=== PATIENT | male | born 1945 | race Caucasian/White ===

== ENCOUNTER 2017-08-05 18:42 | Inpatient (IN) | payer OTHER, SELFPAY ==
[~2017-08-05] VITALS: Ht 165.1 cm; Wt 61.7 kg
[~2017-08-05 18:42] MED LIST: ACETAMINOPHEN-1 EAC1 PO; ADULT LOW DOSE81 MG PO; ASPIR 8181 MG PO; ASPIR-TRIN325 MG PO; CENTANY30 GM TP; CLEOCIN HCL150 MG PO; CLEOCIN HCL300 MG PO; COUMADIN 5 MG TA5 M1 PO; DIGOXIN; DOXYCYCLINE 10100 M1 PO; IBUPROFEN 800800 M1 PO; INDOMETHACIN 5050 MG PO; KEFLEX500 MG PO; LIDOCAINE VISC100 M1 SWISH&SPIT; MEDROLDOSEPACK PO; MOBIC7.5 M1 PO; NAPROSYN500 MG PO; NOHOMEMEDICATIONS; NORCO 5-325 TA1 EACH PO; PREDNISONE 10 M10 MG PO; PREDNISONE 20 M20 MG PO; PROAIR HFA8.5 GM INH; TESSALON PERLE100 MG PO; ULTRAM 50MG TAB50 MG PO; VENTOLIN HFA 1818 GM INH; VICODIN 5-5001 EACH PO; XANAX1 MG PO; ZANAFLEX4 MG PO; ZPAK PO
[2017-08-05 18:58] VITALS: BP 170/91
[2017-08-05 19:58] LABS: CALCIUM 9.4 mg/dL (8.5-10.1); CREATININE 1.4 mg/dL (0.6-1.3); POTASSIUM 4.8 mmol/L (3.5-5.1)
[2017-08-05 20:02] LABS: TOTAL BILIRUBIN 0.4 mg/dL (<0.1-1.0); TOTAL PROTEIN 7.3 g/dL (6.4-8.2)
[2017-08-05 20:04] LABS: APTT 23.5 Seconds (25.0-31.3); INR 1.2; PROTIME 11.3 Seconds (9.20-11.50)
[2017-08-05 20:27] LABS: ABSOLUTE EOSINOPHILS 0.1 thou/uL (0.0-0.7); ABSOLUTE LYMPHOCYTES 1.4 thou/uL (0.8-5.3); ABSOLUTE MONOCYTES 0.5 thou/uL (0.0-1.2); ABSOLUTE NEUTROPHILS 10.9 thou/uL (1.6-8.1); BASOPHILS 0.3 %; EOSINOPHILS 0.6 %; HEMOGLOBIN 16.7 gm/dL (14.0-18.0); LYMPHOCYTES 10.8 %; MCHC 33.4 g/dL (28.0-37.0); MCV 92.8 fL (80.0-100.0); MPV 9.6 fl. (7.2-11.1); NUCLEATED RBCS 0 /100WBC; PLATELET COUNT* 156 thou/uL (150-400); POLYS 84.3 %; RBC 5.39 mil/uL (4.50-6.00); RDW-CV 13.8 % (10.5-14.5)
[2017-08-05 22:39] VITALS: BP 136/74; BP 170/91
[2017-08-05 23:45] VITALS: BP 146/77
--- NOTE | 2017-08-06 07:03 | NUR ---
ASSUMED CARE OF PATIENT AT 2300 THE PATIENT ADMITTED MEDSURG STATUS NOT MONITORED ON TELEPAK O2 MAINTAINED ON RA CONTINUES SX MANAGEMENT RECEIVED PRN FENTANYL DOCUMENTED REPORT GIVEN TO ONCOMING RN
[2017-08-06 07:30] VITALS: BP 132/60
[2017-08-06 07:47] LABS: URINE BILIRUBIN NEGATIVE (Negative); URINE BLOOD NEGATIVE (Negative); URINE CLARITY CLEAR; URINE COLOR YELLOW; URINE GLUCOSE-RANDOM NEGATIVE (Negative); URINE KETONES NEGATIVE (Negative); URINE LEUKOCYTES-REFLEX NEGATIVE (Negative); URINE NITRITE-REFLEX NEGATIVE (Negative); URINE PROTEIN NEGATIVE (Negative); URINE SPECIFIC GRAVITY 1.025 (1.005-1.030); URINE UROBILINOGEN 0.2 E.U./dl (0.2-1.0)
--- NOTE | 2017-08-06 09:16 | NUR ---
ASSESSMENT COMPLETED REFER TO COMPUTER CHARTING. PATIENT RESTING IN BED REPORTING RIGHT LEG PAIN, IV PAIN MEDICATIONS GIVEN. PATIENT ON ROOM AIR. IV FLUIDS INFUSING. CALL LIGHT WITIN REACH. BED IN LOW AND LOCKED POSITION. PATIENT DOWN TO PRE OP AT 0900.
[2017-08-06 10:01] VITALS: BP 123/75; BP 132/60
--- NOTE | 2017-08-06 11:22 | EKG ---
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: MATTHEW : 1945 Requested By: Celeste Gómez Order Number: [id number] MD: You Morton Measurements Intervals [place] Rate: 74 P: 71 [place]: 150 QRS: 70 QRSD: 90 T: 66 QT: 383 QTc: 425 Interpretive Statements Sinus rhythm Baseline wander in lead(s) I,aVL,V2 Compared to ECG 08/06/2014 20:12:32 Sinus bradycardia no longer present Electronically Signed On 08-06-2017 11:21:42 TRANSIT PLANNER by You Morton [email or web address] <ELECTRONICALLY SIGNED> By: You Morton MD, FACC 08/06/17 1121 17 17 You Morton MD, [facility] /EPI
--- NOTE | 2017-08-06 11:23 | NUR ---
CM ASSESSMENT: Spoke with Pt's son and dtr in room. Pt out of the room in surgery. Pt is normally A&O. Resides at home with his dtr and LINETTE. Pt is independent with ADLs. LINETTE stated that Pt was standing at the top of the stairs and lost his footing, which led to his fall and hip fx. LINETTE stated that Pt has half a foot. No DME. No hx of HH or SNF. Dtr discussed possible need for skilled at dc. CM provided family with [employer] [facility] skilled list, and confirmed that [facility] does accept this insurance. PT to eval. CM following for dc needs.
--- NOTE | 2017-08-06 13:03 | NUR ---
PATIENT BACK FROM SURGERY. PATIENT DROWSEY. PAIN MEDS GIVEN NEEDED. IV FLUIDS INFUSING. PATIENT ON ROOM, CAPNO IN PLACE. HEMO VAC TO RIGHT LEG. DRESSING CLEAN, DRY AND INTACT.
[2017-08-06 14:29] LABS: INR 1.1; PROTIME 10.7 Seconds (9.20-11.50)
[2017-08-06 15:30] VITALS: BP 134/68
[2017-08-07 00:51] VITALS: BP 105/57
[2017-08-07 03:52] LABS: HEMATOCRIT 36.5 % (42.0-52.0)
[2017-08-07 03:54] VITALS: BP 101/60
[2017-08-07 04:15] LABS: HEMOGLOBIN 12.4 gm/dL (14.0-18.0)
--- NOTE | 2017-08-07 05:10 | NUR ---
PT TRANSFERED FROM [facility] AT 2215 ASSISSTED TO ROOM ORIENTED TO SURROUNDINGS PT ALERT AND ORIENTED X4 VS AND ASSESSMENT STABLE. SURGICAL DRSG TO R HIP CDI WITH HEMOVAC IN PLACE DRAINING SMALL AMOUNT SANGUINEOUS OUTPUT. PT DENIED ANY COMPLAINT AND SLEPT THROUGH THE NIGHT. INDIO LOCKHART
[2017-08-07 07:50] VITALS: BP 97/62
[2017-08-07 16:00] VITALS: BP 107/57
--- NOTE | 2017-08-07 18:05 | NUR ---
PAIN MANAGED WITH ORDERED PAIN MEDS. PT WITHOUT C/O TODAY. UP WITH SBA USING WALKER. HEMAVAC IN PLACE WITH SANGUINOUS DRAINAGE. SURGICAL DRESSING IN PLACE.
[2017-08-07 20:00] VITALS: BP 114/60
[2017-08-08 00:16] VITALS: BP 104/63
[2017-08-08 04:05] VITALS: BP 102/54
[2017-08-08 04:45] LABS: HEMATOCRIT 35.4 % (42.0-52.0)
[2017-08-08 08:00] VITALS: BP 107/52
--- NOTE | 2017-08-08 08:19 | NUR ---
ASSUMED CARE OF PATIENT AT APPROXIMATELY 1999. UPON FIRST ASSESSMENT, PATIENT HAD C/O PAIN AND REQUESTED ORDERED PRN MEDICATION. PATIENT A/O X 4 AND VSS. PATIENT EXTREMELY SLEEPY DURING SHIFT, ALTHOUGH HE WAS EASILY AROUSED. PATIENT ONLY MADE THE ONE REQUEST TO NURSING OVERNIGHT AND WAS OTHERWISE CONTENT. PATIENT USED THE URINAL DURING NIGHT AND WAS NOT INCONTINENT. URINE OUTPUT WAS WELL WITHIN NORMAL LIMITS. HEMOVAC IN PLACE, PUTTING OUT BRIGHT RED DISCHARGE. NURSING TO FOLLOW-UP NECESSARY. ALL FALL PRECAUTIONS IN PLACE, INCLUDING CALL LIGHT WITHIN REACH. WILL CONTINUE TO MONITOR CLOSELY.
--- NOTE | 2017-08-08 13:15 | S ---
[address] [address] SURGICAL PATH RPT PROCEDURE Name: AVERY WOODY Room: [address] IN M.R.#: [id number] Admission: 08/05/17 Date of : 49 Discharge: Report #: [id number] Path Case #: [id number] PATHOLOGY REPORT COLLECTION DATE: 08/06/2017 RECEIVED DATE: 08/06/2017 SUBMITTING PHYS: Dr. Victor Manuel Burns OTHER PHYS: Dr. Mike Foley SPECIMEN(S) RECEIVED: A.Right femoral head * * * * * * * * * * * * FINAL DIAGNOSIS: Right femoral head: - Benign femoral head including hematopoietic elements, with osteoporosis and evidence of fracture including fresh stromal hemorrhage. (ARUNA:pit; 08/08/2017) PATHOLOGIST: Jovan Andres M.D. REPORT ELECTRONICALLY SIGNED BY: Jovan Andres M.D. DATE/TIME: 08/08/2017 12:58 * * * * * * * * * * * * GROSS PATHOLOGY: Received in formalin labeled "Avery Zamudio Sr., right femoral head," is a femoral head measuring 4.5 x 4.5 x 4.3 cm in greatest dimensions. The articular surface is smooth to granular and pale navarrete to light brown in appearance, with no gross evidence of eburnation. Sectioning reveals a light yellow to hemorrhagic marrow space, with the distal most aspect hemorrhagic in appearance, consistent with a fracture site. Material Planning Analyst tissue from the fracture site is submitted in cassettes A1 and A2, following decalcification. (DAC; 08/07/2017) CLINICAL HISTORY: Right hip fracture INITIAL CPT CODE(S): A; 89004, 63502 [facility] [address] [place] [address] [address] SURGICAL PATH RPT PROCEDURE Name: AVERY WOODY SR Room: [address] IN [facility].#: [id number] Admission: 08/05/17 Date of : 49 Discharge: Report #: [id number] Path Case #: [id number] Technical services performed by [facility] at [address] [place] [address], [place] [address]. [place] [address] PHONE: [phone] DIRECTOR: Biju George M.D. * * * END OF REPORT * * *
--- NOTE | 2017-08-08 16:41 | NUR ---
CM ASSESSMENT: VISITED WITH PT IN ROOM. PT HOSPITALIZED AFTER FALL AND HAD HIP SURGERY. PT STATES HE LIVES WITH HIS DAUGHTER AND PLANS TO RETURN THERE WITH HOME HEALTH. PT ADAMANT HE WILL NOT GO TO SNU. HE PERFORMS HIS OWN ADLS AT HOME AND DRIVES. HE STATES A NURSE FROM [facility] IS SUPPOSED TO COME TO HIS HOUSE. NO PRFERENCE FOR [facility]. WILL CONTINUE TO FOLLOW
--- NOTE | 2017-08-08 17:32 | NUR ---
PATIENT IS ORIENTED TODAY AND VERY DROWSY MOST OF THE DAY. FAMILY SAID THE MEDICATIONS ARE NOT ORDERED CORRECTLY AND REQUESTED THEY BE CHANGED. PATIENT WORKED WITH OT AND PT AFTER SOME ENCOURAGEMENT. VITAL SIGNS STABLE ON ROOM AIR. PAIN THAT IS WELL CONTROLLED WITH ORAL PAIN MEDICATIONS. CALL LIGHT IS IN REACH CALL WILL CONTINUE TO MONITOR.
[2017-08-08 20:00] VITALS: BP 116/56
[2017-08-08 23:46] VITALS: BP 102/57
[2017-08-09 03:13] VITALS: BP 107/52
--- NOTE | 2017-08-09 05:20 | NUR ---
Alert and oriented x 4. Rt hip mepilex dressing dry and intact. He's voiding per urinal. Medicated x 1 at bedtime for pain. VItals stable. He has slept well.
[2017-08-09 08:00] VITALS: BP 91/47
--- NOTE | 2017-08-09 12:00 | NUR ---
SPOKE WITH PT.IN ROOM. HE WAS ALERT AND ORIENTED. STATED HE WAS AGREEABLE TO SNF AND WANTS TO GO TO [facility]. REFERRAL MADE TO [facility]. SHE SAID THEY CAN ACCEPT PT.MEDICALLY,TOMORROW,PENDING INSURANCE AUTHORIZATION. CM INFORMED PT.'S DAUGHTER AND S-I-L OF THIS WHEN THEY VISITED LATER ON IN THE AFTERNOON.
[2017-08-09 16:10] VITALS: BP 112/61
--- NOTE | 2017-08-09 17:13 | NUR ---
ALERT AND ORIENTED X4. UP WITH ASSIST X1 WITH WALKER AND GAIT BELT. IV IS PATENT AND SALINE LOCKED. PAIN IS BEING MANAGED WITH PO PAIN MEDICATION. DENIES NAUSEA. TOLERATING DIET. ATTENDED THERAPY THIS AM. VSS ON ROOM AIR. HOURLY ROUNDS HAVE BEEN MAINTAINED THROUGHOUT SHIFT. CALL LIGHT IS WITHIN REACH. NURSING WILL CONTINUE TO MONITOR.
[2017-08-09 20:00] VITALS: BP 127/61
[2017-08-10 00:06] VITALS: BP 110/57
[2017-08-10 04:03] VITALS: BP 97/65
--- NOTE | 2017-08-10 06:53 | NUR ---
Alert and oriented x 4. Rt hip bulky dressing dry and intact. He had pain meds x 2 and a dose of milk of mag last evening. Vitals are stable. He has slept well.
[2017-08-10 08:30] VITALS: BP 120/57
--- NOTE | 2017-08-10 14:31 | NUR ---
[facility] CALLED AND SAID SHE HAS AUTHORIZATION FROM INSURANCE. [facility] CAN PICK HIM UP AT 1730. FAXED DISCHARGE ORDERS TO [facility]. CHART COPIED TO GO WITH HIM. ANGELO PUENTES WILL CALL REPORT. PT.SLEEPING SOUNDLY. CALLED DAUGHTER ON CELL TO LET HER KNOW.
[2017-08-10 16:13] VITALS: BP 134/68
[2017-08-10 16:23] VITALS: BP 134/68
[2017-08-10 16:31] VITALS: BP 134/68
[2017-08-10] MEDS ORDERED: DUONEB 2.5-0.5 M3 ML INH (16:39)
[2017-08-10] MEDS ORDERED: HYDROCODONE-AP1 EAC6 PO (16:40)
[2017-08-10] MEDS ORDERED: XARELTO10 MG PO (16:43)
--- NOTE | 2017-08-10 18:29 | NUR ---
PATIENT LEFT UNIT AT 1745. ALERT AND ORIENTED X4. UP WITH ASSIST X1 WITH WALKER AND GAIT BELT. IV DC'D. PAIN BEING MANAGED WITH PO PAIN MEDICATION. DENIES NAUSEA. ALL PERSONAL ITEMS LEFT WITH PATIENT. DISCHARGE INSTRUCTIONS AND PRESCRIPTIONS SENT WITH PATIENT TO FACILITY. ATTENDED THERAPY THIS AM. VSS ON ROOM AIR. HOURLY ROUNDS HAVE BEEN MAINTAINED THROUGHOUT SHIFT. LEFT WITH TRANSPORTER VIA WHEELCHAIR VAN. REPORT GIVEN TO JASMEET AT [facility].
--- NOTE | 2017-08-13 11:32 | NUR ---
CALL FROM PT.S SON IN LAW,TEENA. HE SAID HE WANTS TO GET HIS FATHER IN LAW MOVED TO ANOTHER SNF, HE HAS RECEIVED TERRIBLE CARE WHERE HE IS AT. GAVE EXAMPLES. GAVE HIM SEVERAL CHOICES OF FACILITIES HE COULD GO TO. HE CHOSE [facility]. HE HAS SEEN IT WITH HIS WORK. SUJIT CALLED MICHELLE/[facility] AND FAXED HER H&P AND OP REPORT FROM WHEN HE WAS HERE. MICHELLE SAID THAT THE REST OF THE INFORMATION WILL NEED TO COME FROM [facility]. NOTIFIED TEENA OF FAX NUMBER AND MICHELLE'S PHONE NUMBER. HE WILL NEED CONTACT TELEPHOTO ENGINEER AT [facility] TO REQEST INFORMATION BE FAXED TO Ashley. SUJIT ALSO SPOKE WITH [facility] REGARDING COMPLAINTS. SHE WILL REACH OUT TO THE FAMILY.
--- NOTE | 2017-08-17 09:54 | OP ---
[facility] [address] [place] [address] OPERATIVE REPORT Name: DENISSE WOODY SR Room: [address] IN .R.#: [id number] Admission: 08/05/17 Attend Phys: Lyudmila Painter Discharge: 08/10/17 Date of : 49 Report #: [id number] THIS REPORT FOR: //name// CC: Gianni Schreiber PREOPERATIVE DIAGNOSIS: Displaced subcapital fracture of the right hip. POSTOPERATIVE DIAGNOSIS: Displaced subcapital fracture of the right hip. OPERATIVE PROCEDURES PERFORMED: Right bipolar hip replacement. DESCRIPTION OF PROCEDURE: Under general endotracheal anesthesia, the patient was moved down to the operating room table onto his left side. Routine prep and drape were performed of the right hip and leg. Following the appropriate timeout procedure, an 8-inch mini posterolateral incision was made. The incision was carried through the skin and subcutaneous tissue and fascia dc. The gluteal muscles were split in the direction of their fibers. Short external rotators were incised at the insertion on the greater trochanter. Capsule was opened with a T-shaped incision. Osteotomy was made over the femoral neck in a manner to receive the prosthesis. The femoral head was removed with a femoral head extractor. Femoral head measured 46 mm in diameter. The proximal femur was reamed up to size 8 stem. The bipolar prosthetic device was assembled. The wound was copiously irrigated every 20 minutes with bacitracin solution. Bleeding was carefully controlled throughout the procedure by electrocautery. The hip was reduced and carried through a range of motion without difficulty. A Hemovac drain was inserted. Wound was closed in layers with #2 FiberWire at the capsular fascial layers. Subcutaneous tissue was closed with 2-0 plain. Skin was closed with skin caroline. Sterile dressing was applied. The patient tolerated the procedure well and was returned to the recovery area in good condition. <ELECTRONICALLY SIGNED> By: Victor Manuel Burns MD 08/17/17 0954 1133 1151John Dallin Burns MD /emiliano
--- NOTE | 2017-09-18 14:32 | CON ---
[address] [address] CONSULTATION Name: TREEMILYDENISSE ZAC SR Room: [address] IN .R.#: [id number] Admission: 08/05/17 Attend Phys: Lyudmila Painter Discharge: 08/10/17 Date of : 49 Report #: [id number] THIS REPORT FOR: //name// CC: Gianni Schreiber DATE OF SERVICE: 08/05/2017 HISTORY OF PRESENT ILLNESS: A 71-year-old male fell on to his hip sustaining a displaced subcapital fracture of his right hip. He was seen in the emergency room and was advised that he would require a right bipolar hip replacement arthroplasty. The risks and benefits of surgery along with possible complications were discussed with him. He was noted to be markedly tender the right hip, he complained of pain upon any motion manipulation. The right leg was shortened and externally rotated. Once he is medically cleared, he will be taken to surgery. He will subsequently be followed until his injury has healed. DIAGNOSIS: Displaced subcapital fracture of the right hip. <ELECTRONICALLY SIGNED> By: Victor Manuel Burns MD 09/18/17 1432 0946 1416Josen Burns MD /nt
== END 2017-08-10 17:45 | DRG 470 ==
LOC: M.ERS 18:42 → M.2W 21:26 → M.TBA-ER 21:26 → M.2W 22:43 → M.ORTHSURG 08-06 22:15
PROVIDERS: Nurse Practitioner Family; ADMIT Internal Medicine
PROC: 0SRR0JZ Replacement of Right Hip Joint, Femoral Surface with Synthetic Substitute, Open Approach (ICD-10-PCS; principal; 2017-08-06)
DX: S72.011A Unspecified intracapsular fracture of right femur, initial encounter for closed fracture (principal); F17.210 Nicotine dependence, cigarettes, uncomplicated; R53.81 Other malaise; I25.10 Atherosclerotic heart disease of native coronary artery without angina pectoris; N18.2 Chronic kidney disease, stage 2 (mild); E86.9 Volume depletion, unspecified; F32.9 Major depressive disorder, single episode, unspecified; Z98.49 Cataract extraction status, unspecified eye; I25.2 Old myocardial infarction; Z79.899 Other long term (current) drug therapy; Z88.0 Allergy status to penicillin; Z88.2 Allergy status to sulfonamides; Z79.82 Long term (current) use of aspirin

== ENCOUNTER 2018-02-14 17:47 | Emergency (ER) | payer OTHER, MEDICARE, SELFPAY ==
[~2018-02-14] VITALS: Ht 165.1 cm; Wt 59.0 kg
[~2018-02-14 17:47] MED LIST changes: +DUONEB 2.5-0.5 M3 ML INH; +HYDROCODONE-AP1 EAC6 PO; +XARELTO10 MG PO
[2018-02-14] MEDS ORDERED: MUPIROCIN1 GM TOP (18:01)
[2018-02-14 18:23] LABS: ABSOLUTE EOSINOPHILS 0.1 thou/uL (0.0-0.7); ABSOLUTE LYMPHOCYTES 1.8 thou/uL (0.8-5.3); ABSOLUTE MONOCYTES 0.6 thou/uL (0.0-1.2); ABSOLUTE NEUTROPHILS 4.7 thou/uL (1.6-8.1); BASOPHILS 0.3 %; EOSINOPHILS 1.5 %; HEMATOCRIT 45.6 % (42.0-52.0); HEMOGLOBIN 15.2 gm/dL (14.0-18.0); LYMPHOCYTES 24.5 %; MCH 30.6 pg (26.0-34.0); MCHC 33.3 g/dL (28.0-37.0); MCV 92.1 fL (80.0-100.0); MONOCYTES 8.2 %; MPV 9.2 fl. (7.2-11.1); NUCLEATED RBCS 0 /100WBC; PLATELET COUNT* 174 thou/uL (150-400); POLYS 65.5 %; RBC 4.95 mil/uL (4.50-6.00); RDW-CV 14.4 % (10.5-14.5); WBC 7.2 thou/uL (4.0-11.0)
[2018-02-14 18:29] LABS: CALCIUM 9.1 mg/dL (8.5-10.1); CREATININE 1.4 mg/dL (0.6-1.3); POTASSIUM 4.7 mmol/L (3.5-5.1)
[2018-02-14 18:34] LABS: TOTAL BILIRUBIN 0.4 mg/dL (<0.1-1.0); TOTAL PROTEIN 7.3 g/dL (6.4-8.2)
[2018-02-14] MEDS ORDERED: CLEOCIN HCL150 MG PO (18:58)
[2018-02-14] MEDS ORDERED: ANTIFUNGAL30 GM TOP (18:58)
[2018-02-14 20:20] VITALS: BP 152/82
== END 2018-02-14 20:27 | disposition home or self-care (01) ==
LOC: M.ERS 17:47
PROVIDERS: Nurse Practitioner Family
DX: L03.115 Cellulitis of right lower limb (principal); I25.10 Atherosclerotic heart disease of native coronary artery without angina pectoris; I25.2 Old myocardial infarction; F32.9 Major depressive disorder, single episode, unspecified; F17.210 Nicotine dependence, cigarettes, uncomplicated; Z88.0 Allergy status to penicillin; Z88.1 Allergy status to other antibiotic agents

== ENCOUNTER 2018-04-06 22:46 | Emergency (ER) | payer OTHER ==
[~2018-04-06] VITALS: Ht 165.1 cm; Wt 59.0 kg
[~2018-04-06 22:46] MED LIST changes: +ANTIFUNGAL30 GM TOP; +MUPIROCIN1 GM TOP
[2018-04-06] MEDS ORDERED: BLOOD THINNER (23:05)
[2018-04-06] MEDS ORDERED: XANAX (23:05)
[2018-04-07 00:09] VITALS: BP 130/70
== END 2018-04-07 00:10 | disposition home or self-care (01) ==
LOC: M.ERS 22:46
DX: S01.81XA Laceration without foreign body of other part of head, initial encounter (principal); F32.9 Major depressive disorder, single episode, unspecified; I25.10 Atherosclerotic heart disease of native coronary artery without angina pectoris; F17.210 Nicotine dependence, cigarettes, uncomplicated; Z96.641 Presence of right artificial hip joint; Z87.442 Personal history of urinary calculi; Z88.1 Allergy status to other antibiotic agents; Z88.0 Allergy status to penicillin; W10.8XXA Fall (on) (from) other stairs and steps, initial encounter; Y93.89 Activity, other specified; Y92.89 Other specified places as the place of occurrence of the external cause; Y99.8 Other external cause status

== ENCOUNTER 2018-06-17 13:15 | Emergency (ER) | payer OTHER ==
[~2018-06-17] VITALS: Ht 165.1 cm; Wt 59.0 kg
[~2018-06-17 13:15] MED LIST changes: +BLOOD THINNER; +XANAX
[2018-06-17 13:25] VITALS: BP 143/93
[2018-06-17] MEDS ORDERED: KEFLEX500 M1 PO (14:05)
== END 2018-06-17 14:09 | disposition home or self-care (01) ==
LOC: M.ERS 13:15
DX: L03.115 Cellulitis of right lower limb (principal); F32.9 Major depressive disorder, single episode, unspecified; F17.210 Nicotine dependence, cigarettes, uncomplicated; Z88.0 Allergy status to penicillin; Z88.2 Allergy status to sulfonamides; Z89.432 Acquired absence of left foot; Z87.442 Personal history of urinary calculi; Z96.641 Presence of right artificial hip joint

== ENCOUNTER 2018-08-07 20:01 | Emergency (ER) | payer OTHER ==
[~2018-08-07] VITALS: Ht 165.1 cm; Wt 59.0 kg
[~2018-08-07 20:01] MED LIST changes: +KEFLEX500 M1 PO
[2018-08-07] MEDS ORDERED: ASPIR 8181 MG PO (20:20)
[2018-08-07] MEDS ORDERED: TRAZODONE HCL50 MG PO (20:21)
[2018-08-07] MEDS ORDERED: XARELTO20 MG PO (20:21)
[2018-08-07 20:37] LABS: ABSOLUTE EOSINOPHILS 0.1 thou/uL (0.0-0.7); ABSOLUTE LYMPHOCYTES 1.9 thou/uL (0.8-5.3); ABSOLUTE MONOCYTES 0.6 thou/uL (0.0-1.2); ABSOLUTE NEUTROPHILS 4.6 thou/uL (1.6-8.1); BASOPHILS 0.6 %; EOSINOPHILS 1.5 %; HEMATOCRIT 44.6 % (42.0-52.0); HEMOGLOBIN 15.2 gm/dL (14.0-18.0); LYMPHOCYTES 25.9 %; MCH 31.4 pg (26.0-34.0); MCHC 34.1 g/dL (28.0-37.0); MCV 92.1 fL (80.0-100.0); MONOCYTES 8.3 %; MPV 9.3 fl. (7.2-11.1); NUCLEATED RBCS 0 /100WBC; PLATELET COUNT* 196 thou/uL (150-400); POLYS 63.7 %; RBC 4.84 mil/uL (4.50-6.00); RDW-CV 14.2 % (10.5-14.5); WBC 7.3 thou/uL (4.0-11.0)
[2018-08-07 20:45] LABS: ANION GAP 5 mmol/L (7-16); BUN 22 mg/dL (7-18); CALCIUM 8.9 mg/dL (8.5-10.1); CHLORIDE 106 mmol/L (98-107); CO2 33 mmol/L (21-32); CREATININE 1.6 mg/dL (0.6-1.3); GLUCOSE 132 mg/dL (70-99); POTASSIUM 4.5 mmol/L (3.5-5.1); SODIUM 144 mmol/L (136-145)
[2018-08-07 20:53] LABS: ALBUMIN 3.4 g/dL (3.4-5.0); ALKALINE PHOSPHATASE 71 U/L (46-116); LIPASE 126 U/L (73-393); SGOT 22 U/L (15-37); SGPT 43 U/L (30-65); TOTAL BILIRUBIN 0.3 mg/dL (<0.1-1.0); TOTAL PROTEIN 6.2 g/dL (6.4-8.2); TROPONIN-I LEVEL <0.06 ng/mL (<0.06)
[2018-08-07 21:00] LABS: URINE BILIRUBIN NEGATIVE (Negative); URINE BLOOD NEGATIVE (Negative); URINE CLARITY CLEAR; URINE COLOR YELLOW; URINE GLUCOSE-RANDOM NEGATIVE (Negative); URINE KETONES NEGATIVE (Negative); URINE LEUKOCYTES-REFLEX NEGATIVE (Negative); URINE NITRITE-REFLEX NEGATIVE (Negative); URINE PROTEIN NEGATIVE (Negative); URINE SPECIFIC GRAVITY >= 1.030 (1.005-1.030); URINE UROBILINOGEN 0.2 E.U./dl (0.2-1.0)
[2018-08-07 22:21] VITALS: BP 107/53
--- NOTE | 2018-08-08 16:35 | EKG ---
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
== END 2018-08-07 22:22 | disposition home or self-care (01) ==
LOC: M.ERS 20:01
PROVIDERS: Family Medicine
DX: R10.30 Lower abdominal pain, unspecified (principal); M25.551 Pain in right hip; I25.10 Atherosclerotic heart disease of native coronary artery without angina pectoris; F32.9 Major depressive disorder, single episode, unspecified; F17.210 Nicotine dependence, cigarettes, uncomplicated; Z87.442 Personal history of urinary calculi; Z96.641 Presence of right artificial hip joint

== ENCOUNTER 2018-09-28 17:11 | Emergency (ER) | payer OTHER ==
[~2018-09-28] VITALS: Ht 165.1 cm; Wt 59.0 kg
[~2018-09-28 17:11] MED LIST changes: +TRAZODONE HCL50 MG PO; +XARELTO20 MG PO
[2018-09-28] MEDS ORDERED: COUMADIN 5 MG TA5 M1 PO (17:22)
[2018-09-28 19:06] VITALS: BP 128/77
== END 2018-09-28 19:06 | disposition home or self-care (01) ==
LOC: M.ERS 17:11
DX: S70.01XA Contusion of right hip, initial encounter (principal); S70.11XA Contusion of right thigh, initial encounter; S00.81XA Abrasion of other part of head, initial encounter; I25.10 Atherosclerotic heart disease of native coronary artery without angina pectoris; F32.9 Major depressive disorder, single episode, unspecified; F17.210 Nicotine dependence, cigarettes, uncomplicated; Z88.2 Allergy status to sulfonamides; Z89.432 Acquired absence of left foot; Z87.442 Personal history of urinary calculi; Z96.641 Presence of right artificial hip joint; W06.XXXA Fall from bed, initial encounter; Y93.89 Activity, other specified; Y92.89 Other specified places as the place of occurrence of the external cause; Y99.8 Other external cause status

== ENCOUNTER 2019-02-17 11:02 | Emergency (ER) | payer OTHER | END 2019-02-17 13:00 | disposition home or self-care (01) | LOC: M.ERS 11:02 | DX: S20.212A Contusion of left front wall of thorax, initial encounter (principal); F17.210 Nicotine dependence, cigarettes, uncomplicated; I25.10 Atherosclerotic heart disease of native coronary artery without angina pectoris; I25.2 Old myocardial infarction; Z79.82 Long term (current) use of aspirin; Z88.0 Allergy status to penicillin; Z88.2 Allergy status to sulfonamides; W06.XXXA Fall from bed, initial encounter; Y93.89 Activity, other specified; Y92.89 Other specified places as the place of occurrence of the external cause; Y99.8 Other external cause status ==

== ENCOUNTER 2019-03-08 14:11 | Emergency (ER) | payer OTHER ==
[~2019-03-08] VITALS: Ht 165.1 cm; Wt 59.0 kg
[~2019-03-08 14:11] MED LIST changes: +NABUMETONE 750750 M1 PO
[2019-03-08] MEDS ORDERED: COUMADIN 4 MG TA4 M1 PO (14:25)
[2019-03-08] MEDS ORDERED: NABUMETONE 750750 M1 PO (14:25)
[2019-03-08] MEDS ORDERED: PROTONIX 20 MG20 M1 PO (14:25)
[2019-03-08] MEDS ORDERED: CARTIA XT120 M1 PO (14:25)
[2019-03-08] MEDS ORDERED: NORCO 5-325 TA1 EAC1 PO (15:55)
[2019-03-08] MEDS ORDERED: MEDROLDOSEPACK PO (15:59)
[2019-03-08 16:00] VITALS: BP 110/84
== END 2019-03-08 16:01 | disposition home or self-care (01) ==
LOC: M.ERS 14:11
DX: S22.42XA Multiple fractures of ribs, left side, initial encounter for closed fracture (principal); I25.10 Atherosclerotic heart disease of native coronary artery without angina pectoris; I25.2 Old myocardial infarction; F32.9 Major depressive disorder, single episode, unspecified; F17.210 Nicotine dependence, cigarettes, uncomplicated; Z96.641 Presence of right artificial hip joint; Z90.49 Acquired absence of other specified parts of digestive tract; Z89.422 Acquired absence of other left toe(s); Z87.442 Personal history of urinary calculi; Z88.0 Allergy status to penicillin; Z88.2 Allergy status to sulfonamides; X58.XXXA Exposure to other specified factors, initial encounter; Y92.89 Other specified places as the place of occurrence of the external cause; Y93.89 Activity, other specified; Y99.8 Other external cause status

== ENCOUNTER 2019-05-26 16:25 | Inpatient (IN) | payer OTHER ==
[~2019-05-26] VITALS: Ht 165.1 cm; Wt 57.6 kg
[~2019-05-26 16:25] MED LIST changes: +CARTIA XT120 M1 PO; +COUMADIN 4 MG TA4 M1 PO; +NORCO 5-325 TA1 EAC1 PO; +PROTONIX 20 MG20 M1 PO
[2019-05-26 16:37] VITALS: BP 142/93
[2019-05-26 17:43] LABS: ABSOLUTE EOSINOPHILS 0.1 thou/uL (0.0-0.7); ABSOLUTE LYMPHOCYTES 1.6 thou/uL (0.8-5.3); ABSOLUTE MONOCYTES 0.6 thou/uL (0.0-1.2); ABSOLUTE NEUTROPHILS 4.9 thou/uL (1.6-8.1); BASOPHILS 0.4 %; EOSINOPHILS 0.9 %; HEMATOCRIT 48.3 % (42.0-52.0); HEMOGLOBIN 16.8 gm/dL (14.0-18.0); LYMPHOCYTES 22.1 %; MCH 31.4 pg (26.0-34.0); MCHC 34.7 g/dL (28.0-37.0); MCV 90.4 fL (80.0-100.0); MONOCYTES 8.7 %; MPV 9.1 fl. (7.2-11.1); NUCLEATED RBCS 0 /100WBC; PLATELET COUNT* 196 thou/uL (150-400); POLYS 67.9 %; RBC 5.34 mil/uL (4.50-6.00); RDW-CV 13.5 % (10.5-14.5); WBC 7.1 thou/uL (4.0-11.0)
[2019-05-26 17:54] LABS: INR 1.1; PROTIME 11.6 Seconds (9.20-11.50)
[2019-05-26 18:06] LABS: CREATININE 1.6 mg/dL (0.6-1.3); POTASSIUM 5.6 mmol/L (3.5-5.1); TOTAL BILIRUBIN 0.9 mg/dL (<0.1-1.0); TOTAL PROTEIN 7.8 g/dL (6.4-8.2)
[2019-05-26 18:22] LABS: CALCIUM 9.9 mg/dL (8.5-10.1)
[2019-05-26 23:26] LABS: INFLUENZA A ANTIGEN Negative (Negative); INFLUENZA B ANTIGEN Negative (Negative)
[2019-05-27 00:01] VITALS: BP 113/72
[2019-05-27 03:16] LABS: HEMATOCRIT 48.3 % (42.0-52.0); HEMOGLOBIN 16.2 gm/dL (14.0-18.0); MCH 30.6 pg (26.0-34.0); MCHC 33.6 g/dL (28.0-37.0); MCV 91.3 fL (80.0-100.0); MPV 9.2 fl. (7.2-11.1); RBC 5.29 mil/uL (4.50-6.00); RDW-CV 13.7 % (10.5-14.5); WBC 8.8 thou/uL (4.0-11.0)
[2019-05-27 03:36] LABS: CALCIUM 9.4 mg/dL (8.5-10.1); CREATININE 1.5 mg/dL (0.6-1.3); MAGNESIUM 2.1 mg/dL (1.8-2.4)
[2019-05-27 03:39] LABS: POTASSIUM 4.3 mmol/L (3.5-5.1)
[2019-05-27 05:13] VITALS: BP 112/76
[2019-05-27 08:00] VITALS: BP 133/60
[2019-05-27 14:20] LABS: ABSOLUTE MONOCYTES 0.5 thou/uL (0.0-1.2); ABSOLUTE NEUTROPHILS 5.4 thou/uL (1.6-8.1); BASOPHILS 0.4 %; EOSINOPHILS 0.4 %; HEMATOCRIT 47.3 % (42.0-52.0); HEMOGLOBIN 16.2 gm/dL (14.0-18.0); LYMPHOCYTES 14.3 %; MCH 31.2 pg (26.0-34.0); MCHC 34.4 g/dL (28.0-37.0); MCV 90.9 fL (80.0-100.0); MONOCYTES 7.1 %; MPV 9.2 fl. (7.2-11.1); NUCLEATED RBCS 0 /100WBC; PLATELET COUNT* 195 thou/uL (150-400); POLYS 77.8 %; RDW-CV 13.7 % (10.5-14.5)
[2019-05-27 14:29] LABS: APTT 27.2 Seconds (25.0-31.3); INR 1.1; PROTIME 11.3 Seconds (9.20-11.50)
--- NOTE | 2019-05-27 14:31 | CON ---
[address] [address] CONSULTATION Name: DENISSE WOODY Room: [place] [address] ADM IN M.Marlen.#: [id number] Admission: 05/26/19 Attend Phys: Joi Gottlieb MD Discharge: Date of : 49 Report #: [id number] THIS REPORT FOR: //name// CC: Gianni Gottlieb DATE OF SERVICE: 05/27/2019 CARDIOLOGY CONSULTATION HISTORY OF PRESENT ILLNESS: The patient is a 73-year-old single white male who I was asked to see in the Emergency Room today after complaining of fever and cough. The patient has a long history of AFib. He apparently has never been cardioverted. He has been followed by my partner, Dr. Victor Manuel Roca. He has been chronically anticoagulated with warfarin. He does have his INR checked on a regular basis. Previous cardiac workup included an echocardiogram back in 2009 that showed normal left ventricular function. He underwent a stress echocardiogram back in 2009 that showed no evidence of ischemia. The patient last saw Dr. Roca in January of this year when he was doing well. The patient states he was doing well until the past 2 days, he has been running a fever and coughing. Denied any shortness of breath, edema, awakened up at night short of breath. He has noticed some fatigue. Denied chest pain or palpitations. He came to the Emergency Room and was admitted. PAST MEDICAL HISTORY: Otherwise, significant for cataract extraction. He had accident [place] the farm requiring amputation of his left toes in the past. He has had hip replacement. He has had kidney stone surgery. He has no history of hypertension, diabetes, or hyperlipidemia. MEDICATIONS: Include diltiazem 120 mg a day, warfarin 4 mg a day, and Relafen. ALLERGIES: He has an allergy to PENICILLIN and SULFA drugs. FAMILY HISTORY: His mother and father had heart disease. SOCIAL HISTORY: He is , lives by himself here in [place]. He is retired at this time. He does smoke a pipe. No history of alcohol abuse. REVIEW OF SYSTEMS: He has no history of stroke, asthma, or peptic ulcer disease. He has had a kidney stone. No cancer. He wears glasses. PHYSICAL EXAMINATION: GENERAL: Revealed an elderly male, lying in bed, appeared in no distress. VITAL SIGNS: He had a blood pressure 130/60, pulse is 80, he is afebrile. HEENT: He was anicteric. Conjunctivae pink. [place] [address] CONSULTATION Name: DENISSE WOODY Room: [address] IN [facility].#: [id number] Admission: 05/26/19 Attend Phys: Joi Gottlieb MD Discharge: Date of : 49 Report #: [id number] NECK: Veins nondistended. No carotid bruits. CHEST: Clear to auscultation. CARDIOVASCULAR: Irregular rhythm. No significant murmurs. ABDOMEN: Soft. EXTREMITIES: He had no edema. Posterior tibial pulse 2+ bilaterally. SKIN: Warm and dry. NEUROLOGIC: Nonfocal. LYMPH: No adenopathy. MUSCULOSKELETAL: No joint effusion. DIAGNOSTIC DATA: ECG shows atrial fibrillation, nonspecific ST and T-wave change. His workup in the Emergency Room today: Sodium 145, creatinine 1.5, glucose was 81. Liver function studies were normal. Troponin 0.06. BNP 653. TSH in 2015 was 1.18. INR was 1.8, white blood cell count 8.8, and hemoglobin 16.2. The patient had a portable chest x-ray in the Emergency Room today that showed normal heart size, no pleural effusion, no infiltrate. IMPRESSION AND RECOMMENDATIONS: 1. Bronchitis. The patient has fever and cough. Recommend antibiotics. 2. Permanent atrial fibrillation. Rate controlled with calcium izzy. I would continue anticoagulation, maintain an INR of 2-3. 3. Hypertension. The patient is on a calcium izzy. 4. Tobacco abuse. The patient uses a pipe. 5. History of kidney stones. <ELECTRONICALLY SIGNED> By: You Morton MD, FACC 05/27/19 1431 1239 1301Davigolden Morton MD, FACC /nt
--- NOTE | 2019-05-27 15:05 | 2DMMODE ---
[place] [address] 2 D/M-MODE ECHOCARDIOGRAM Name: BONGDENISSEANTHONY FRANK Room: [place] [address] ADM IN [facility]#: [id number] Admission: 05/26/19 Attend Phys: Joi Gottlieb, Discharge: Date of : 49 Date of Service: 05/27/19 1504 Report #: [id number] THIS REPORT FOR: //name// APPROVED REPORT Study performed: 05/27/2019 13:38:52 EXAM: Comprehensive 2D, Doppler, and color-flow Echocardiogram Patient Location: In-Patient Room #: er Status: routine BSA: 1.65 HR: 81 bpm BP: 121/70 mmHg Rhythm: Atrial Fibrillation Other Information Study Quality: Good Indications Dyspnea 2D Dimensions IVSd: 10.85 (7-11mm) LVOT Diam: 18.70 (18-24mm) LVDd: 46.23 mm PWd: 7.94 (7-11mm) Ascending Ao: 34.98 (22-36mm) LVDs: 25.57 (25-40mm) Aortic Root: 29.66 mm Volumes Left Atrial Volume (Systole) LA ESV Index: 31.40 mL/m2 Aortic Valve AoV Peak Timur.: 1.40 m/s AO Peak Gr.: 7.83 mmHg LVOT Max P.37 mmHg AO Mean Gr.: 4.40 mmHg LVOT Mean P.20 mmHg LVOT Max V: 1.05 m/s AO V2 VTI: 25.04 cm LVOT Mean V: 0.68 m/s BETTE (VTI): 2.17 cm2 LVOT V1 VTI: 19.76 cm TDI Medial E' Timur.: 0.17 m/s Lateral E' Timur.: 0.14 m/[place] [address] 2 D/M-MODE ECHOCARDIOGRAM Name: DENISSE WOODY Room: [address] IN [facility].#: [id number] Admission: 05/26/19 Attend Phys: Joi Gottlieb, Discharge: Date of : 49 Date of Service: 05/27/19 1504 Report #: [id number] Pulmonary Valve PV Peak Timru.: 1.10 m/s PV Peak Gr.: 4.84 mmHg Tricuspid Valve RAP Estimate: 5.00 mmHg TR Peak Gr.: 27.88 mmHg RVSP: 32.00 mmHg PA Pressure: 32.00 mmHg Left Ventricle The left ventricle is normal size. There is normal LV segmental wall motion. There is normal left ventricular wall thickness. Left ventricular systolic function is normal. The left ventricular ejection fraction is within the normal range. LVEF is 55-60%. This study is not technically sufficient to allow evaluation of the LV diastolic function due to atrial fibrillation. Right Ventricle The right ventricle is normal size. The right ventricular systolic function is normal. Atria Left atrium is mildly dilated. The right atrium size is normal. Aortic Valve The aortic valve is normal in structure. No aortic regurgitation is present. There is no aortic valvular stenosis. Mitral Valve The mitral valve is normal in structure. Trace mitral regurgitation. No evidence of mitral valve stenosis. Tricuspid Valve The tricuspid valve is normal in structure. Mild tricuspid regurgitation. estimated pa pressure 35 mm hg Pulmonic Valve Pulmonic valve is not well visualized. Trace pulmonic regurgitation. Great Vessels The aortic root is normal in size. IVC is normal in size and collapses >50% with inspiration. Pericardium There [place] [address] 2 D/M-MODE ECHOCARDIOGRAM Name: DENISSE WOODY Room: [address] IN [facility]#: [id number] Admission: 05/26/19 Attend Phys: Joi Gottlieb, Discharge: Date of : 49 Date of Service: 05/27/19 1504 Report #: [id number] <Conclusion> LVEF is 55-60%. Left atrium is mildly dilated. <ELECTRONICALLY SIGNED> By: You Morton MD, [facility] 05/27/19 1504 1504 1504 You Morton MD, [facility] /INF
[2019-05-27 16:08] VITALS: BP 133/71
[2019-05-27 16:42] VITALS: BP 139/65
[2019-05-27] MEDS ORDERED: WELLBUTRIN SR150 M1 PO (17:17)
[2019-05-27] MEDS ORDERED: XANAX1 MG PO (17:18)
[2019-05-27] MEDS ORDERED: PROTONIX 20 MG20 MG PO (18:24)
[2019-05-27 20:00] VITALS: BP 115/49
[2019-05-28] VITALS (7 sets, daily range): BP systolic 118–140; BP diastolic 49–72
[2019-05-28 02:24] LABS: AMP/METHAMP Negative (Negative); BARBITURATES Negative (Negative); BENZODIAZEPINES POSITIVE (Negative); COCAINE Negative (Negative); METHADONE Negative (Negative); OPIATES Negative (Negative); PCP Negative (Negative); THC Negative (Negative)
[2019-05-28 05:42] LABS: HEMATOCRIT 40.7 % (42.0-52.0); MCH 30.9 pg (26.0-34.0); MCHC 34.1 g/dL (28.0-37.0); MCV 90.6 fL (80.0-100.0); MPV 9.3 fl. (7.2-11.1); RBC 4.5 mil/uL (4.50-6.00); RDW-CV 13.4 % (10.5-14.5); WBC 6.8 thou/uL (4.0-11.0)
[2019-05-28 05:46] LABS: INR 1.2; PROTIME 11.9 Seconds (9.20-11.50)
[2019-05-28 05:52] LABS: HEMOGLOBIN 13.9 gm/dL (14.0-18.0)
[2019-05-28 06:08] LABS: ALBUMIN 3.7 g/dL (3.4-5.0); ALKALINE PHOSPHATASE 73 U/L (46-116); ANION GAP 9 mmol/L (7-16); BUN 29 mg/dL (7-18); CALCIUM 8.9 mg/dL (8.5-10.1); CHLORIDE 107 mmol/L (98-107); CHOLESTEROL 96 mg/dL (<200); CO2 26 mmol/L (21-32); CREATININE 1.5 mg/dL (0.6-1.3); GLUCOSE 97 mg/dL (70-99); HDL CHOLESTEROL 42 mg/dL (>40); LDL CHOLESTEROL 44 mg/dL (<100); POTASSIUM 3.8 mmol/L (3.5-5.1); SERUM ASSESSMENT Clear; SGOT 19 U/L (15-37); SGPT 28 U/L (30-65); SODIUM 142 mmol/L (136-145); TC:HDL 2.3 Ratio (Not establshd); TOTAL BILIRUBIN 0.4 mg/dL (<0.1-1.0); TOTAL PROTEIN 6.6 g/dL (6.4-8.2); TRIGLYCERIDE 52 mg/dL (<150); VLDL 10 mg/dL (<40)
[2019-05-29] VITALS: BP 142/64
[2019-05-29 04:00] VITALS: BP 139/70
[2019-05-29 05:21] LABS: INR 1.4; PROTIME 14.5 Seconds (9.20-11.50)
[2019-05-29 08:00] VITALS: BP 152/74
[2019-05-29] MEDS ORDERED: FLECAINIDE ACET50 M1 PO (10:43)
[2019-05-29] MEDS ORDERED: NICOTINE TRANSD21 M1 TRANSDERM (11:10)
[2019-05-29] MEDS ORDERED: AZITHROMYCIN 2250 MG PO (11:26)
--- NOTE | 2019-05-29 11:26 | EKG ---
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
[2019-05-29] MEDS ORDERED: AZITHROMYCIN500 MG (11:32)
[2019-05-29 11:37] VITALS: BP 160/61
--- NOTE | 2019-05-30 14:34 | EKG ---
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 : 1945 Requested By: Davie Barron Order Number: [id number] Kassandra MD: Victor Manuel Roca Measurements Intervals [place] Rate: 118 P: [place]: QRS: 77 QRSD: 79 T: -85 QT: 265 QTc: 372 Interpretive Statements Atrial fibrillation Repol abnrm suggests ischemia, inferior leads Compared to ECG 08/07/2018 20:50:18 Early repolarization now present Possible ischemia now present Sinus rhythm no longer present Electronically Signed On 05-30-2019 14:34:04 CDT by Victor Manuel Roca [email or web address] <ELECTRONICALLY SIGNED> By: Victor Manuel Roca MD, FAC 05/30/19 1434 1644 1644 Victor Manuel Roca MD, [facility] /EPI
== END 2019-05-29 11:52 | disposition home health service (06) | DRG 309 ==
LOC: M.ERS 16:25 → M.2W 18:13 → M.TBA-ER 18:13 → M.2W 05-27 16:28
PROVIDERS: Emergency Medicine Emergency Medical Services; Family Medicine; Internal Medicine Cardiovascular Disease; Personal Emergency Response Attendant; ADMIT Internal Medicine
PROC: 5A2204Z Restoration of Cardiac Rhythm, Single (ICD-10-PCS; principal; 2019-05-28)
DX: I48.21 Permanent atrial fibrillation (principal); N17.9 Acute kidney failure, unspecified; I48.20 Chronic atrial fibrillation, unspecified; I12.9 Hypertensive chronic kidney disease with stage 1 through stage 4 chronic kidney disease, or unspecified chronic kidney disease; N18.3 Chronic kidney disease, stage 3 (moderate); I25.10 Atherosclerotic heart disease of native coronary artery without angina pectoris; F32.9 Major depressive disorder, single episode, unspecified; Z96.641 Presence of right artificial hip joint; F03.90 Unspecified dementia, unspecified severity, without behavioral disturbance, psychotic disturbance, mood disturbance, and anxiety; F17.210 Nicotine dependence, cigarettes, uncomplicated; F41.9 Anxiety disorder, unspecified; J44.9 Chronic obstructive pulmonary disease, unspecified; Z79.01 Long term (current) use of anticoagulants; Z89.432 Acquired absence of left foot; Z87.442 Personal history of urinary calculi; I25.2 Old myocardial infarction; Z88.0 Allergy status to penicillin; Z88.2 Allergy status to sulfonamides; Z82.49 Family history of ischemic heart disease and other diseases of the circulatory system; Z86.73 Personal history of transient ischemic attack (TIA), and cerebral infarction without residual deficits; Z91.14 Patient's other noncompliance with medication regimen; Z23 Encounter for immunization; Z79.899 Other long term (current) drug therapy

== ENCOUNTER 2019-06-25 10:26 | Emergency (ER) | payer OTHER ==
[~2019-06-25] VITALS: Ht 165.1 cm; Wt 59.0 kg
[~2019-06-25 10:26] MED LIST changes: +AZITHROMYCIN 2250 MG PO; +AZITHROMYCIN500 MG; +FLECAINIDE ACET50 M1 PO; +NICOTINE TRANSD21 M1 TRANSDERM; +PROTONIX 20 MG20 MG PO; +WELLBUTRIN SR150 M1 PO
[2019-06-25] MEDS ORDERED: TYLENOL WITH CO1 TA1 PO (11:51)
[2019-06-25 12:04] VITALS: BP 138/76
== END 2019-06-25 12:04 | disposition home or self-care (01) ==
LOC: M.ERS 10:26
DX: M25.532 Pain in left wrist (principal); I25.10 Atherosclerotic heart disease of native coronary artery without angina pectoris; I25.2 Old myocardial infarction; F32.9 Major depressive disorder, single episode, unspecified; F17.210 Nicotine dependence, cigarettes, uncomplicated; Z87.442 Personal history of urinary calculi; Z89.432 Acquired absence of left foot; Z88.2 Allergy status to sulfonamides; Z88.0 Allergy status to penicillin

== ENCOUNTER 2019-06-27 11:48 | Emergency (ER) | payer OTHER ==
[~2019-06-27] VITALS: Ht 165.1 cm; Wt 59.0 kg
[~2019-06-27 11:48] MED LIST changes: +TYLENOL WITH CO1 TA1 PO
[2019-06-27 12:57] LABS: ABSOLUTE EOSINOPHILS 0.1 thou/uL (0.0-0.7); ABSOLUTE LYMPHOCYTES 1.6 thou/uL (0.8-5.3); ABSOLUTE MONOCYTES 0.4 thou/uL (0.0-1.2); ABSOLUTE NEUTROPHILS 3.7 thou/uL (1.6-8.1); BASOPHILS 0.5 %; EOSINOPHILS 1.4 %; HEMATOCRIT 45.4 % (42.0-52.0); HEMOGLOBIN 15.3 gm/dL (14.0-18.0); LYMPHOCYTES 27.5 %; MCH 30.7 pg (26.0-34.0); MCHC 33.8 g/dL (28.0-37.0); MCV 91.1 fL (80.0-100.0); MONOCYTES 7.6 %; MPV 8.6 fl. (7.2-11.1); NUCLEATED RBCS 0 /100WBC; PLATELET COUNT* 167 thou/uL (150-400); RBC 4.99 mil/uL (4.50-6.00); RDW-CV 14.3 % (10.5-14.5); WBC 5.9 thou/uL (4.0-11.0)
[2019-06-27 13:04] LABS: CALCIUM 8.4 mg/dL (8.5-10.1); CREATININE 1.3 mg/dL (0.6-1.3); POTASSIUM 4.7 mmol/L (3.5-5.1)
[2019-06-27 13:09] LABS: TOTAL BILIRUBIN 0.7 mg/dL (<0.1-1.0); TOTAL PROTEIN 7.1 g/dL (6.4-8.2)
[2019-06-27] MEDS ORDERED: NORCO 5-325 TA1 EAC1 PO (13:58)
[2019-06-27] MEDS ORDERED: VALACYCLOVIR500 MG PO (13:58)
[2019-06-27 14:16] VITALS: BP 121/75
== END 2019-06-27 14:16 | disposition home or self-care (01) ==
LOC: M.ERS 11:48
PROVIDERS: Physician Assistant
DX: M25.532 Pain in left wrist (principal); M25.542 Pain in joints of left hand; F17.210 Nicotine dependence, cigarettes, uncomplicated; Z88.2 Allergy status to sulfonamides; Z88.0 Allergy status to penicillin

== ENCOUNTER 2021-07-12 09:21 | Emergency (ER) | payer OTHER ==
[~2021-07-12] VITALS: Ht 165.1 cm; Wt 63.5 kg
[~2021-07-12 09:21] MED LIST changes: +VALACYCLOVIR500 MG PO
[2021-07-12 10:17] VITALS: BP 97/58
== END 2021-07-12 10:18 | disposition home or self-care (01) ==
LOC: M.ERS 09:21
DX: S61.412A Laceration without foreign body of left hand, initial encounter (principal); I25.10 Atherosclerotic heart disease of native coronary artery without angina pectoris; F17.210 Nicotine dependence, cigarettes, uncomplicated; Z88.0 Allergy status to penicillin; Z88.2 Allergy status to sulfonamides; Z79.01 Long term (current) use of anticoagulants; Z79.899 Other long term (current) drug therapy; Z95.0 Presence of cardiac pacemaker; W31.0XXA Contact with mining and earth-drilling machinery, initial encounter; Y93.89 Activity, other specified; Y92.89 Other specified places as the place of occurrence of the external cause; Y99.9 Unspecified external cause status